=== PATIENT | female | born 1945 | race Caucasian/White ===

== ENCOUNTER 2020-01-05 08:40 | Day surgery (SDC) | payer MEDICARE, OTHER, SELFPAY ==
[2020-01-05 09:01] VITALS: BMI 23.0
--- NOTE | 2020-01-05 09:21 | W.PM.OPSUD ---
Surgery/Procedure H&P Update DATE OF PROCEDURE: January 05, 2020 DATE H&P PERFORMED: 12/23/19 H&P UPDATE INFORMATION: I have reviewed H&P completed within last 30 days, I have examined patient prior to procedure and No changes to prior documentation PREOP DIAGNOSIS: Subcutaneous mass on the back , screening colonoscopy PLANNED PROCEDURE: Operation Date: 12/31/19 14:15 Proposed Procedures p Excision of mass on back(Not Applicable) - Sincere Kapoor MD Operation Date: 01/05/20 09:45 Proposed Procedures p Excision Mass/Lesion/Cyst Upper Torso/He mass on back(Not Applicable) - Sincere Kapoor MD
--- NOTE | 2020-01-05 09:35 | ANES.PREANE2 ---
Pre-Anesthetic Assessment Pre-Anesthetic Assessment: Height/Weight: Height 1.57 m Weight 57.153 kg Preop Diagnosis: Subcutaneous mass on the back , screening colonoscopy Proposed Procedure: Operation Date: 12/31/19 14:15 Proposed Procedures p Excision of mass on back(Not Applicable) - Sincere Kapoor MD Operation Date: 01/05/20 09:45 Proposed Procedures p Excision Mass/Lesion/Cyst Upper Torso/He mass on back(Not Applicable) - Sincere Kapoor MD Was Beta Tanna taken within 24 hours: N/A Last intake: Intake Last Liquid Date 01/04/20 Last Liquid Time 21:00 Last Solid Date 01/04/20 Last Solid Time 20:00 Social: Social History: No alcohol and No tobacco Exam: Pre-Anes Outpt Exam: alert, oriented x 3, clear to auscultation bilaterally and regular rate & rhythm Airway: Submandibular: WNL Cervical ROM: WNL MP: 1 Dentition: Full History/ROS: No significant history except as noted Pulmonary: Pulmonary: None reported CV/HEM: CV/HEM: HTN : : None reported Hepatic: Hepatic: None reported GI: GI: None reported Metabolic: Metabolic: None reported Musc/skel: Musc/skel: None reported Neuropsych: Neuropsych: None reported Anesthetic Plan: ASA status: 2 Anesthesia: MAC Risk of > 500 ml blood loss (7ml/kg in children): No PFSH Anesthesia PFSH: Social History Smoking and tobacco status: never smoked Alcohol intake: never Lives independently: Yes Household members: spouse History of recent travel: No Data Anesthesia Cardiac Studies: No Data to Display
[2020-01-05] MEDS: sodium chloride 0.9% 1,000 ML 30 ML IV (09:53)
[2020-01-05] MEDS: lidocaine 1% INJ 20 mL SUBCUT (10:28)
[2020-01-05 11:21] VITALS: BP 125/75; PULSE 67; RESP 18; TEMP 36.2; O2SAT 100
[2020-01-05 11:31] VITALS: BP 138/77; PULSE 65; RESP 18; O2SAT 98
--- NOTE | 2020-01-05 14:11 | PM.PACU ---
PACU note Post-Anesthesia Exam: awake and vital signs stable Disposition: discharged
--- NOTE | 2020-01-05 17:38 | PM.OP ---
Operative Report Date of procedure: January 05, 2020 Pre-op Diagnosis: Subcutaneous mass on the back , screening colonoscopy Post-op Diagnosis: Lipoma on the back Procedure Done: Excision of lipoma on the back measuring 10 x 7 cm Specimens removed/disposition: Lipoma on the back Surgeon: Sincere Kapoor Anesthesia: MAC Estimated blood loss (mL): 10 Condition: stable Disposition: same day Procedure: The patient was taken to the operating room and placed in the right lateral position under MAC after IV antibiotic had been administered. The area around the palpable mass was prepped and draped in sterile manner. 1% lidocaine with 0.5% Marcaine infiltrated around the palpable mass. Using 15 blade a 7 cm transverse incision was made, subcutaneous tissue was divided using electrocautery and the lipoma was excised free from the surrounding subcutaneous tissue. Wound was irrigated with saline, hemostasis ensured and subcutaneous tissues were approximated using running 3-0 Vicryl suture and skin was closed using running subcuticular 4-0 Monocryl suture and surgical glue. The patient was transferred to recovery room in stable condition.
== END 2020-01-05 11:56 | disposition home or self-care (01) ==
PROVIDERS: Family Provider Family Medicine; PCP Family Medicine; Visit Provider Surgery
PROC: (CPT 11406; principal; 2020-01-05 09:35)
DX: D17.39 Benign lipomatous neoplasm of skin and subcutaneous tissue of other sites (principal); I10 Essential (primary) hypertension
CPT/HCPCS: 11406; 12034; 12345; 88307; 96365; J0690; J1885; J2001; J2704; J3010; J3490; J7030

== ENCOUNTER 2020-01-11 10:24 | Emergency (ER) | payer MEDICARE, OTHER, SELFPAY ==
[2020-01-11 10:27] VITALS: BP 159/94; PULSE 85; RESP 18; TEMP 37; O2SAT 98; BMI 25.6
--- NOTE | 2020-01-11 10:34 | ED_ITS ---
Entered by Amparo Car, acting as scribe for Won Simental DO HPI - Headache General: Chief Complaint: Headache Stated Complaint: head pain Time Seen by Provider: 01/11/20 10:26 Source: patient Mode of arrival: ambulatory Limitations: no limitations History of Present Illness: HPI Narrative: 74 yo Female presents to ED with complaint of head pain and swelling. Pt has a wisdom tooth that needs to be removed and she is being treated prophalactically with Amoxicillin. Pt complains of increased swelling and pain to the back right side of her head. Pt states that she has a rash under her chin as well MD elicited complaint: other (swelling and pain to right side of the back of her head) Onset (ago): day(s) Onset description: gradually Location: right, facial and neck Pain scale (0-10): 10 Quality & Timing: aching, sharp and constant Exacerbating factors: none Relieving factors: nothing Associated symptoms: Reports rash Treatments prior to arrival: acetaminophen Review of Systems General: Reports: 10 or more systems reviewed and unremarkable except in HPI and below Skin/Breast: Reports: rash, redness, skin pain, skin tenderness and sores PFS ED PFSH: Medical History Glaucoma Hypertension Left rib fracture Subcutaneous mass of back Surgical History H/O left nephrectomy History of excision of mass lower back History of splenectomy Status post colonoscopy Family History Denies family history of Anesthesia complication Bleeding disorder Social History Smoking and tobacco status: never smoked Alcohol intake: never Lives independently: Yes Household members: spouse History of recent travel: No Physical Exam Const: COMMON NORMALS: no apparent distress, average body habitus, oriented x3, no limitations, healthy appearing, alert and well nourished HENMT: COMMON NORMALS: normocephalic, head/scalp atraumatic, hearing grossly normal bilaterally, external ears normal, EAC's normal, TM's normal bilaterally, external nose normal, nasal mucous membranes and turbinates normal, moist oral mucous membranes, oropharynx normal, dentition normal and gingiva normal HEAD & SCALP: normocephalic and atraumatic NOSE: external nose normal and nasal mucous membranes and turbinates normal EXTERNAL EAR: Yes external ears normal EXTERNAL AUDITORY CANAL: EAC's normal TYMPANIC MEMBRANE: TM's normal bilaterally Eye: COMMON NORMALS: PERRL, EOMs intact bilaterally, conjunctivae normal, no scleral icterus, no papilledema, normal visual [place] by confrontation and fundi normal bilaterally CONJUNCTIVA: Yes conjunctivae normal PUPIL: Yes PERRL DIRECT OPHTHALMOSCOPY: Yes no papilledema and Yes fundi normal bilaterally Neck/C-Spine: COMMON NORMALS: full ROM, no lymphadenopathy, supple, no meningeal signs, no JVD, thyroid normal and no carotid bruits THYROID: thyroid normal Chest: COMMONS NORMALS: inspection of chest normal and palpation of chest normal Resp: COMMON NORMALS: normal respiratory effort, no retractions, no use of accessory muscles, clear to auscultation bilaterally and percussion normal AUSCULTATION: clear to auscultation bilaterally PERCUSSION: percussion normal Cardio: COMMON NORMALS: no JVD, regular rate, regular rhythm, S1 normal heart sound, S2 normal heart sound, no gallops, no clicks, no murmurs, no rub and peripheral pulses 2+ throughout RATE: regular rate RHYTHM: regular rhythm HEART SOUNDS: S1 normal and S2 normal PERIPHERAL PULSES: pulses 2+ throughout GI: COMMON NORMALS: normal to inspection, nondistended, normoactive bowel sounds, soft to palpation, non-tender, no hepatosplenomegaly, no masses and no bruits PALPATION: Yes soft and Yes no hepatosplenomegaly : COMMON NORMALS: Yes no CVA tenderness and Yes external appearance normal BLADDER/KIDNEY EXAM: Yes no CVA tenderness Back/Pelvis: COMMON NORMALS: no CVA tenderness, thoracic and lumbar spine normal to inspection, no thoracic nor lumbar tenderness, thoraco-lumbar ROM normal and straight leg raise negative bilaterally Extremity: COMMON NORMALS: normal to inspection, full ROM, normal capillary refill, no joint enlargement, no clubbing, cyanosis or edema, no calf tenderness and no pedal edema Neuro: COMMON NORMALS: oriented x3 SENSORIUM/ORIENTATION: Yes alert MENINGEAL SIGNS: Yes no meningeal signs Skin: COMMON NORMALS: no wounds, skin turgor normal, no jaundice, no petechiae and no mottling; negative for no rashes or lesions noted GENERAL SKIN EXAM: rashes and/or lesions noted and turgor normal RASHES: rashes noted Course Vital Signs: Vital signs: Vital Signs Temperature 98.6 F 01/11/20 10:27 Pulse Rate 85 01/11/20 10:27 Respiratory Rate 18 01/11/20 10:27 Blood Pressure 159/94 01/11/20 10:27 Pulse Oximetry 98 01/11/20 10:27 Discharge Plan Discharge Patient Disposition: Home, Self-Care Clinical Impression: Herpes zoster Qualifiers: Herpes zoster complications: without complications Qualified Code(s): B02.9 - Zoster without complications Condition: Stable Prescriptions: New acyclovir 800 mg tablet 800 mg PO 5XD Qty: 35 RF: 0 Zovirax 5 % ointment 1 applic TOPICAL 6XD 7 Days Qty: 15 RF: 0 No Action famotidine 20 mg tablet 20 mg PO BID RF: 0 latanoprost [Xalatan] 0.005 % drops 1 drop ophthalmic (eye) DAILY RF: 0 amlodipine 2.5 mg tablet 2.5 mg PO BID RF: 0 clotrimazole 1 % cream 1 applic TOPICAL BID RF: 0 betamethasone valerate 0.1 % cream 1 applic TOPICAL BID PRN (Reason: Itching) RF: 0 timolol maleate 0.25 % drops 1 drop ophthalmic (eye) DAILY RF: 0 [place] 5-325 mg tablet 1 tab PO Q6H 7 Days Qty: 20 RF: 0 Discharge Orders: Discharge Order (Routine); Ordered 01/11/20 Ordered By: Won Simental Referrals: Niki Zuniga MD [Primary Care Provider] - Patient Instructions: Herpes Zoster (ED), Shingles Coding Level of Care Code ED Cotton Sampler for Chg Fwd Exam Comprehensive The documentation recorded by the Joceline diez Carmen, accurately reflects the service I personally performed and the decisions made by , Won Simental, Jan 11, 2020 10:24
[2020-01-11 10:56] VITALS: O2SAT 96
[2020-01-11 11:20] VITALS: BP 117/89; PULSE 88; O2SAT 98
== END 2020-01-11 11:20 | disposition home or self-care (01) ==
PROVIDERS: Emergency Provider Family Medicine; Family Provider Family Medicine; PCP Family Medicine
DX: B02.9 Zoster without complications (principal); I10 Essential (primary) hypertension
CPT/HCPCS: 12345; 99281; 99282

== ENCOUNTER 2021-10-06 15:41 | Emergency (ER) | payer MEDICARE, SELFPAY ==
[2021-10-06 15:58] VITALS: BP 154/94; PULSE 90; RESP 19; TEMP 36.8; O2SAT 94; BMI 21.7
--- NOTE | 2021-10-06 16:25 | ED_ITS ---
HPI - Head Injury General: Chief complaint: Head Injury Stated complaint: HEAD LAC/HIT BY TREE LIMB Time Seen by Provider: 10/06/21 16:24 History of Present Illness: HPI Narrative: pt had limb hit the back of her head around 1300 today Complaint: head injury Associated symptoms: Deny confusion or vertigo Review of Systems 2 General: Reports: 10 or more systems reviewed and unremarkable except in HPI and below Skin/Breast: Reports: other (small superficial laceration to parietal region of scalp ) Neuro: Denies: headache(s), vertigo, confusion or seizure-like activity PFSH ED PFSH: Medical History Glaucoma Hypertension Left rib fracture Subcutaneous mass of back Surgical History H/O left nephrectomy History of excision of mass (~12/2019) lipoma History of splenectomy Status post colonoscopy Family History Denies family history of Anesthesia complication Bleeding disorder Social History Smoking and tobacco status: never smoked Alcohol intake: never Lives independently: Yes Household members: spouse History of recent travel: No Physical Exam Const: COMMON NORMALS: no acute distress, patient oriented x3, no limitations and alert GENERAL APPEARANCE: cooperative and comfortable ORIEN TATION/CONSCIOUSNESS: Yes awake, Yes oriented to person, Yes oriented to place and Yes oriented to time HENMT: COMMON NORMALS: normocephalic, atraumatic, external ears normal, EAC's normal, TM's normal bilaterally and Normal external nose present HEAD & SCALP: normal to inspection, normocephalic and atraumatic FACE & SINUS: normal facial exam, sinuses nontender and face symmetric NOSE: Normal external nose present, Normal nares present and No nasal discharge present EXTERNAL EAR: Yes external ears normal EXTERNAL AUDITORY CANAL: EAC's normal TYMPANIC MEMBRANE: TM's normal bilaterally MOUTH: Normal oral and palatal mucosa present, lip normal and tongue normal THROAT: posterior oropharynx normal, tonsils normal and uvula midline Eye: COMMON NORMALS: Equal, round and reactive pupils present, EOMs intact bilaterally and conjunctivae normal GENERAL EYE: appearance normal, both eyes and all related structures and normal light reflex EYELID: eyelids normal CONJUNCTIVA: Yes conjunctivae normal PUPIL: Yes Equal, round and reactive pupils present EOM: Yes EOM abnormal DIRECT OPHTHALMOSCOPY: Yes normal light reflex Neck/C-Spine: COMMON NORMALS: full ROM, no lymphadenopathy, supple, no meningeal signs, no JVD and Thyroid normal GENERAL: Yes normal visual inspection THYROID: Thyroid normal CERVICAL SPINE: Yes cervical ROM normal and Yes normal cervical lordosis Lymph: LYMPHATIC: no lymphadenopathy noted Chest: COMMONS NORMALS: normal inspection of the chest and normal palpation of entire chest wall Resp: COMMON NORMALS: normal respiratory effort, No retractions and clear to auscultation bilaterally AUSCULTATION: clear to auscultation bilaterally Cardio: COMMON NORMALS: no JVD, regular rate, regular rhythm, S1 normal heart sound present, S2 normal heart sound present, No gallops present (Cardio), No clicks present (Cardio), No murmurs present (Cardio), No rub (Cardio) and Peripheral pulses 2+ throughout RATE: regular rate RHYTHM: regular rhythm HEART SOUNDS: S1 normal heart sound present and S2 normal heart sound present PERIPHERAL PULSES: Peripheral pulses 2+ throughout GI: COMMON NORMALS: Normal to inspection, nondistended, normoactive bowel sounds present, Soft to palpation, non-tender and no masses PALPATION: Yes Soft to palpation : COMMON NORMALS: Yes no CVA tenderness and Yes normal external appearance BLADDER/KIDNEY EXAM: Yes no CVA tenderness Back/Pelvis: COMMON NORMALS: no CVA tenderness, thoracic and lumbar spine normal to inspection, no thoracic nor lumbar tenderness and thoraco-lumbar ROM normal Extremity: COMMON NORMALS: normal to inspection, full ROM, capillary refill normal, no joint enlargement, no clubbing, cyanosis or edema, no calf tenderness and no pedal edema GENERAL: Yes normal exam except as noted Neuro: COMMON NORMALS: patient oriented x3, moves all extremities, no focal motor deficits, no sensory deficits noted and gait normal SENSORIUM/ORIENTATION: Yes alert, Yes oriented to person, Yes oriented to place and Yes oriented to time MENINGEAL SIGNS: Yes no meningeal signs Psych: COMMON NORMALS: mental status grossly normal, Normal thought process present, cooperative, normal affect, speech normal and activity/motor behavior normal SPEECH: Yes normal speech THOUGHT PROCESS: Normal thought process present Skin: COMMON NORMALS: no rashes or lesions noted, no wounds and turgor normal GENERAL SKIN EXAM: no rashes or lesions noted and turgor normal WOUNDS: Yes wounds noted (superficial abrasion/laceration to parietal scalp-scab has formed) Course ED course: Pt presents to ER with complaints of small laceration to back of head after a limb hit her. It was cleaned and the hair around was shaved. It has already formed a small scab and looks excellent. No visual changes, no IRWIN, no LOC, no confusion. We will not do a CT at this time as pt is neurologically intact. Will proceed with DC with conservative wound care management. Vital Signs: Vital signs: Vital Signs Temperature 98.2 F 10/06/21 15:58 Pulse Rate 77 10/06/21 16:36 Respiratory Rate 16 10/06/21 16:36 Blood Pressure 147/91 10/06/21 16:36 Pulse Oximetry 97 10/06/21 16:36 Discharge Plan Discharge Condition: Stable Prescriptions: No Action famotidine 20 mg tablet 20 mg PO BID RF: 0 latanoprost [Xalatan] 0.005 % drops 1 drop ophthalmic (eye) DAILY RF: 0 amlodipine 2.5 mg tablet 2.5 mg PO BID RF: 0 clotrimazole 1 % cream 1 applic TOPICAL BID PRN (Reason: unknown) RF: 0 betamethasone valerate 0.1 % cream 1 applic TOPICAL BID PRN (Reason: Itching) RF: 0 timolol maleate 0.25 % drops 1 drop ophthalmic (eye) BID RF: 0 acyclovir 800 mg tablet 800 mg PO 5XD Qty: 35 RF: 0 Multiple Vitamins Tablet 1 tab PO DAILY RF: 0 amoxicillin 500 mg Capsule 500 mg PO QID RF: 0 Tylenol Extra Strength 500 mg Tablet See Rx Instructions .ROUTE .COMPLEX RF: 0 Calcium 500 1 tab PO DAILY RF: 0 Vitamin C See Rx Instructions .ROUTE .COMPLEX RF: 0 Discharge Orders: Discharge ED (Routine); Ordered 10/06/21 Ordered By: Emerita Hernandez Referrals: Mesfin Rutledge MD [Primary Care Provider] - Discharge Diet: Usual diet Discharge Activity: Resume usual activity Coding Level of Care Code ED Sybase Developer for Taylerg Kyara
[2021-10-06 16:36] VITALS: BP 147/91; PULSE 77; RESP 16; O2SAT 97
== END 2021-10-06 17:55 ==
PROVIDERS: Emergency Provider Nurse Practitioner Family; PCP Family Medicine
DX: S09.90XA Unspecified injury of head, initial encounter (principal); I10 Essential (primary) hypertension; W22.8XXA Striking against or struck by other objects, initial encounter
CPT/HCPCS: 99283

== ENCOUNTER → 2023-05-07 16:02 | Outpatient (BNVA) | payer MEDICARE, SELFPAY | PROVIDERS: PCP Family Medicine; Visit Provider Nurse Practitioner Family | DX: C44.41 Basal cell carcinoma of skin of scalp and neck (principal) | CPT/HCPCS: 11102; 17000; 17003; 17110; 99213 ==

== ENCOUNTER → 2023-06-04 07:51 | Outpatient (BNVA) | payer MEDICARE, SELFPAY | PROVIDERS: PCP Family Medicine; Visit Provider Dermatology | DX: C44.41 Basal cell carcinoma of skin of scalp and neck (principal) | CPT/HCPCS: 12042; 17311 ==

== ENCOUNTER → 2023-06-15 10:52 | Outpatient (BNVA) | payer MEDICARE, SELFPAY | PROVIDERS: PCP Family Medicine; Visit Provider Dermatology | DX: Z48.02 Encounter for removal of sutures (principal) | CPT/HCPCS: 99212 ==

== ENCOUNTER → 2023-08-01 15:36 | Outpatient (BNVA) | payer MEDICARE, SELFPAY | PROVIDERS: PCP Family Medicine; Visit Provider Dermatology | DX: Z85.828 Personal history of other malignant neoplasm of skin (principal); L82.0 Inflamed seborrheic keratosis; L81.4 Other melanin hyperpigmentation; L82.1 Other seborrheic keratosis; D18.01 Hemangioma of skin and subcutaneous tissue | CPT/HCPCS: 17110; 99213 ==

== ENCOUNTER → 2024-08-04 14:07 | Outpatient (BNVA) | payer MEDICARE, SELFPAY | PROVIDERS: PCP Family Medicine; Visit Provider Nurse Practitioner Family | DX: L57.0 Actinic keratosis (principal); L81.4 Other melanin hyperpigmentation; L82.1 Other seborrheic keratosis; D18.01 Hemangioma of skin and subcutaneous tissue; Z85.828 Personal history of other malignant neoplasm of skin | CPT/HCPCS: 17000; 99213 ==

== ENCOUNTER → 2025-02-02 11:18 | Outpatient (BNVA) | payer MEDICARE, SELFPAY | PROVIDERS: PCP Family Medicine; Visit Provider Nurse Practitioner Family | DX: L81.4 Other melanin hyperpigmentation (principal); L57.8 Other skin changes due to chronic exposure to nonionizing radiation; X32.XXXA Exposure to sunlight, initial encounter; L82.1 Other seborrheic keratosis; Z08 Encounter for follow-up examination after completed treatment for malignant neoplasm; Z85.828 Personal history of other malignant neoplasm of skin; L57.0 Actinic keratosis | CPT/HCPCS: 17000; 99213 ==

== ENCOUNTER → 2025-08-06 11:11 | Outpatient (BNVA) | payer MEDICARE, SELFPAY | PROVIDERS: PCP Family Medicine; Visit Provider Nurse Practitioner Family | DX: L82.1 Other seborrheic keratosis (principal); D18.01 Hemangioma of skin and subcutaneous tissue; L57.8 Other skin changes due to chronic exposure to nonionizing radiation; X32.XXXA Exposure to sunlight, initial encounter; L81.4 Other melanin hyperpigmentation; Z08 Encounter for follow-up examination after completed treatment for malignant neoplasm; Z85.828 Personal history of other malignant neoplasm of skin | CPT/HCPCS: 99213 ==